=== PATIENT | female | born 1945 ===

== ENCOUNTER 2020-12-26 11:17 | Emergency (ER) | payer MEDICARE ==
[2020-12-26 11:46] LABS: BASOPHILS % (AUTO) 0.5 %; EOSINOPHILS # (AUTO) 0.2 10^3/uL (0.0-0.7); EOSINOPHILS % (AUTO) 2.6 %; HCT - HEMATOCRIT 42.7 % (37.0-47.0); HGB - HEMOGLOBIN 13.5 g/dL (12.0-16.0); LYMPHOCYTES # (AUTO) 1.9 10^3/uL (1.5-3.5); LYMPHOCYTES % (AUTO) 31.8 %; MEAN CORPUSCULAR HGB CONC 31.6 g/dL (32.0-36.0); MEAN CORPUSCULAR VOLUME 91.6 fL (81.0-99.0); MEAN PLATELET VOLUME 9.3 fL (7.9-10.8); MONOCYTES # (AUTO) 0.4 10^3/uL (0.0-1.0); MONOCYTES % (AUTO) 7.2 %; NEUTROPHILS # (AUTO) 3.5 10^3/uL (1.5-6.6); NEUTROPHILS % (AUTO) 57.6 %; PLT - PLATELET COUNT 287 10^3/uL (130-450); RED BLOOD COUNT 4.66 10^6/uL (4.20-5.40); RED CELL DISTRIBUTION WIDTH 13.1 % (12.0-15.0); WHITE BLOOD COUNT 6.1 x10^3/uL (4.8-10.8)
[2020-12-26 12:34] LABS: ALBUMIN 4.4 g/dL (3.2-5.5); ALBUMIN/GLOBULIN RATIO 1.4 (1.0-2.2); BILIRUBIN,TOTAL 1.1 mg/dL (0.2-1.0); CALCIUM 9.3 mg/dL (8.5-10.3); CREATININE 0.7 mg/dL (0.4-1.0); POTASSIUM 3.8 mmol/L (3.5-5.0); TOTAL PROTEIN 7.5 g/dL (6.7-8.2)
--- NOTE | 2020-12-26 13:36 | ED Physician Documentation ---
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 Also has a history of right sided lumpectomy for breast cancer presents with chest, abdominal, and back pain. It started Dino night, 3 nights ago. It was particularly bad under the left breast and radiating between the shoulder blades. She was not short of breath per se, but felt like she had to breathe hard because of the pain. It is persistent but milder now. Review of Systems Ten Systems: 10 systems reviewed and negative Constitutional: reports: Reviewed and negative Eyes: reports: Reviewed and negative Ears: reports: Reviewed and negative Nose: reports: Reviewed and negative Throat: reports: Reviewed and negative Cardiac: reports: Reviewed and negative PD PAST MEDICAL HISTORY - Present Medications Home Medications: Ambulatory Orders Medication Instructions Recorded Confirmed Amox/Clav 875/125 [Augmentin] 1 each PO Q12H #20 tablet 12/26/20 - Allergies Allergies/Adverse Reactions: Allergies Allergy/AdvReac Type Severity Reaction Status Date / Time iv contrast Allergy Severe Anxiety Uncoded 12/26/20 11:25 PD ED PE NORMAL - Vitals Vital signs reviewed: Yes - General General: Alert and oriented X 3, No acute distress - HEENT HEENT: PERRL, EOMI - Neck Neck: Supple, no meningeal sign, No bony TTP - Cardiac Cardiac: RRR, No murmur - Respiratory Respiratory: No respiratory distress, Other (No shingles rash, she does have some left chest wall tenderness and mild left upper quadrant tenderness without surgical signs) - Abdomen Abdomen: Other (No shingles rash, she does have some left chest wall tenderness and mild left upper quadrant tenderness without surgical signs) - Derm Derm: No rash - Extremities Extremities: No edema, No calf tenderness / cord - Neuro Neuro: Alert and oriented X 3, Normal speech Results - Vitals Vitals: Vital Signs - 24 hr 12/26/20 12/26/20 12/26/20 11:19 13:35 15:00 Temperature 36.2 C L 36.5 C 36.5 C Heart Rate 83 80 66 Respiratory 18 18 16 Rate Blood Pressure 145/65 H 145/65 H 133/65 H O2 Saturation 97 97 98 Oxygen O2 Source Room air - EKG (time done) 1344 Rate: Rate (enter#) (68) Rhythm: NSR [place]: LAD Intervals: Normal NM QRS: Normal Ischemia: Normal ST segments - Labs Labs: Laboratory Tests 12/26/20 12/26/20 12/26/20 11:41 11:41 11:41 WBC 6.1 RBC 4.66 Hgb 13.5 Hct 42.7 MCV 91.6 MCH 29.0 MCHC 31.6 L RDW 13.1 Plt Count 287 MPV 9.3 Neut # (Auto) 3.5 Lymph # (Auto) 1.9 [place] # (Auto) 0.4 Eos # (Auto) 0.2 Baso # (Auto) 0.0 Absolute Nucleated RBC 0.00 Nucleated RBC % 0.0 Sodium 139 Potassium 3.8 Chloride 103 Carbon Dioxide 28 Anion Gap 8.0 BUN 16 Creatinine 0.7 Estimated GFR (MDRD) 81 L Glucose 190 H Calcium 9.3 Total Bilirubin 1.1 H AST 21 ALT 20 Alkaline Phosphatase 58 Troponin I High Sens < 2.3 L Total Protein 7.5 Albumin 4.4 Globulin 3.1 Albumin/Globulin Ratio 1.4 Lipase 15 L Urine Color Urine Clarity Urine pH Ur Specific [place] Urine Protein Urine Glucose (UA) Urine Ketones Urine Occult Blood Urine Nitrite Urine Bilirubin Urine Urobilinogen Ur Leukocyte Esterase Urine RBC Urine WBC Ur Squamous Epith Cells Urine Crystals Urine Bacteria Ur Microscopic Review Urine Culture Comments 12/26/20 16:10 WBC RBC Hgb Hct MCV MCH MCHC RDW Plt Count MPV Neut # (Auto) Lymph # (Auto) [place] # (Auto) Eos # (Auto) Baso # (Auto) Absolute Nucleated RBC Nucleated RBC % Sodium Potassium Chloride Carbon Dioxide Anion Gap BUN Creatinine Estimated GFR (MDRD) Glucose Calcium Total Bilirubin AST ALT Alkaline Phosphatase Troponin I High Sens Total Protein Albumin Globulin Albumin/Globulin Ratio Lipase Urine Color YELLOW Urine Clarity CLEAR Urine pH 6.0 Ur Specific [place] 1.010 Urine Protein NEGATIVE Urine Glucose (UA) NEGATIVE Urine Ketones NEGATIVE Urine Occult Blood NEGATIVE Urine Nitrite NEGATIVE Urine Bilirubin NEGATIVE Urine Urobilinogen 0.2 (NORMAL) Ur Leukocyte Esterase SMALL H Urine RBC 0-5 Urine WBC 6-10 H Ur Squamous Epith Cells RARE Squamous Urine Crystals 0-2 Calcium Oxalate Urine Bacteria Rare Ur Microscopic Review INDICATED Urine Culture Comments INDICATED PD MEDICAL DECISION MAKING - ED course ED course: This is a parul 75-year-old woman with history of Whipple presents with left- sided abdominal flank and chest pain. Differential diagnosis is broad and includes ACS, pulmonary embolism, and other intra-abdominal issues. As such a broad work-up was entertained with no evidence of ACS. She does have CTs of the chest abdomen pelvis with IV contrast interpreted contemporaneously by me showing no evidence of PE but she does have evidence of colitis with mild hydronephrosis bilaterally with bladder distention. She is treated with antibiotics and close follow-up was advised. Departure - Departure Disposition: Home, Self Care Clinical Impression: Pyelonephritis, Colitis Condition: Good Record reviewed to determine appropriate education?: Yes Instructions: Pyelonephritis Dc Prescriptions: Amox/Clav 875/125 [Augmentin] 1 each PO Q12H #20 tablet Comments: As discussed, it looks like today the pains you are having are probably from a combination of inflammation of your kidney and colon. This should be well treated with antibiotics. Return for new or worsening symptoms. Follow-up with your primary care physician. Consider colonoscopy and retroperitoneal ultrasound in follow-up.
[2020-12-26] MEDS ORDERED: IOVERSOL 320 100 ML VIAL IVP ONE ×2 (13:46→16:09)
[2020-12-26] MEDS ORDERED: IOVERSOL 320 50 ML VIAL ONE (13:51)
[2020-12-26 15:22] VITALS: BP 133/65
[2020-12-26] MEDS ORDERED: IOVERSOL 320 50 ML VIAL PO ONE (16:10)
[2020-12-26 16:25] LABS: BILIRUBIN,URINE NEGATIVE (NEGATIVE); GLUCOSE, URINE (UA) NEGATIVE (NEGATIVE); KETONES,URINE (UA) NEGATIVE (NEGATIVE); LEUKOCYTE ESTERASE, URINE SMALL (NEGATIVE); NITRITE,URINE NEGATIVE (NEGATIVE); OCCULT BLOOD,URINE NEGATIVE (NEGATIVE); PROTEIN,URINE NEGATIVE (NEGATIVE); UROBILINOGEN,URINE 0.2 (NORMAL) E.U./dL (NORMAL)
[2020-12-26 16:27] LABS: CLARITY,URINE CLEAR (CLEAR)
--- NOTE | 2020-12-26 16:30 | CT Report ---
PROCEDURE: ANGIO CHEST W/WO INDICATIONS: Chest pain to back, pe protocol CONTRAST: IV CONTRAST: Optiray 320 ml: 100 PO CONTRAST: Optiray 320 ml50 TECHNIQUE: After the administration of intravenous contrast, 2 mm axial images were acquired from the pulmonary apices to the posterior costophrenic angles during the arterial phase. In addition, 1 mm lung kernel and 5 mm soft tissue kernel reconstructions were performed. 3-dimensional coronal oblique maximum int ensity projection (MIP) reformats, 8 mm axial MIP, and 5 mm coronal and sagittal MPR reformats were t hen performed through the thorax. For radiation dose reduction, the following was used: automated exp osure control, adjustment of mA and/or kV according to patient size. COMPARISON: Concurrent CT abdomen pelvis. FINDINGS: Image quality: There is streak artifact from patient's injected intravenous contrast. Pulmonary arteries: Pulmonary arteries are normal in size, and demonstrate no intraluminal filling d efects to suggest central pulmonary embolism. Lungs and pleura: There is mild scarring and atelectasis in the lung bases. No pleural effusions or p neumothorax. Central and peripheral airways are patent. Mediastinum: Heart size is borderline enlarged with mild left atrial enlargement. No pericardial eff usion. There is moderate coronary arterial vascular calcification. No mediastinal or hilar adenopath y. Thoracic aorta is normal in caliber and enhancement. Esophagus is normal in caliber, without hia ct hernia. Bones and chest wall: No suspicious bony lesions. Ribs and thoracic spine appear intact throughout. No axillary or supraclavicular adenopathy. The thyroid is not well visualized due to streak artifa ct from injected contrast. Abdomen: Visualized upper abdominal solid organs appear normal in the early arterial phase of enhanc ement. IMPRESSION: 1. No evidence of central pulmonary embolism. 2. Mild scarring and atelectasis in the lung bases without acute consolidation. Reviewed by: Linden Farah MD on 12/26/2020 4:29 PM PDT Approved by: Linden Farah MD on 12/26/2020 4:29 PM PDT Station ID: [id number]
[2020-12-26 16:36] LABS: BACTERIA,URINE Rare /HPF (None Seen); CRYSTALS,URINE 0-2 Calcium Oxalate /LPF; RBC,URINE 0-5 /HPF (0-5); SQUAMOUS EPITHELIAL CELL,UR RARE Squamous (<= Few)
--- NOTE | 2020-12-26 16:40 | CT Report ---
PROCEDURE: Abdomen/Pelvis W INDICATIONS: IV and PO, upper abd, L chest pain, hx whipple CONTRAST: IV CONTRAST: Optiray 320 ml: 100 PO CONTRAST: Optiray 320 ml50 TECHNIQUE: After the administration of intravenous and oral contrast, 5 mm thick sections acquired from the diap hragms to the symphysis. 5 mm thick coronal and sagittal reformats were acquired. For radiation dos e reduction, the following was used: automated exposure control, adjustment of mA and/or kV accordin g to patient size. COMPARISON: Concurrent CT angiogram of the chest. FINDINGS: Image quality: Excellent. ABDOMEN: Lung bases: There is mild linear atelectasis and scarring in the lung bases. Heart size is normal. Solid organs: Evaluation of the liver demonstrates no focal hepatic lesions. Gallbladder is surgical ly absent. Biliary system is non dilated. The spleen is normal in size. No adrenal nodules. There i s mild dilatation of the renal collecting systems and proximal ureters bilaterally. No discrete obstr ucting stones or mass visualized. The mid and distal ureters are nondistended. Postsurgical changes are demonstrated consistent with prior Whipple procedure. There is severe fatty atrophy of the remnant pancreatic body and tail. No discrete suspicious mass identified in the surgic al bed. Peritoneum and bowel: Small bowel loops demonstrate normal wall thickness and caliber. No pericecal i nflammatory changes to suggest appendicitis. There is mild segmental bowel wall thickening in the rec tosigmoid colon which reflect a mild colitis. No free fluid or air. Nodes and vessels: No retroperitoneal or mesenteric adenopathy by size criteria. Aorta and inferior vena cava are normal in size. Miscellaneous: No ventral hernias. PELVIS: Genitourinary: Bladder wall thickness is normal. There is moderate bladder distention. Miscellaneous: No inguinal hernias or adenopathy. Bones: No suspicious bony lesions. No vertebral body compression fractures. IMPRESSION: 1. Mild fullness of the renal collection systems and proximal ureters bilaterally without a discrete injecting stone or mass visualized. The findings may reflect sequelae of bladder distention. 2. Moderate distention of the urinary bladder without wall thickening or discrete obstructing mass vi sualized. 3. Postsurgical changes consistent with prior Whipple procedure without a discrete suspicious mass in the surgical bed. 4. Mild segmental wall thickening in the rectal sigmoid colon may reflect a mild colitis. Recommend c orrelation clinically. Reviewed by: Linden Farah MD on 12/26/2020 4:38 PM PDT Approved by: Linden Farah MD on 12/26/2020 4:38 PM PDT Station ID: [id number]
[2020-12-26] MEDS ORDERED: AMOX/CLAV 875 MG/125 MG TABLET PO STA (16:45)
== END 2020-12-26 16:52 | disposition home or self-care (01) ==
LOC: ED 11:17
DX: N12 Tubulo-interstitial nephritis, not specified as acute or chronic (principal); K52.9 Noninfective gastroenteritis and colitis, unspecified
CPT/HCPCS: 36415; 71275; 74177; 80053; 81001; 83690; 84484; 85025; 87086; 93005; 99284; A9270; Q9967; 81003

== ENCOUNTER 2022-07-06 09:17 | Outpatient (CLI) | payer MEDICARE ==
--- NOTE | 2022-07-09 09:40 | Mammography Report ---
BILATERAL DIGITAL SCREENING MAMMOGRAM 3D/2D: 07/06/2022 CLINICAL: Routine screening. Personal history of right breast cancer. Comparison is made to exams dated: 03/22/2016 mammogram, 03/21/2015 mammogram, 03/04/2014 mammogram, 08/16 mammogram, 02/11/2013 mammogram, and 08/12/2012 breast MRI - [facility]. Both breasts are almost entirely fatty (category a/<25% glandular tissue). There are benign calcifications in both breasts. There also are benign post operative findings in th e right breast. No significant masses, calcifications, or other findings are seen in either breast. There has been no significant interval change. IMPRESSION: BENIGN There is no mammographic evidence of malignancy. A 1 year screening mammogram is recommended. This exam was interpreted at Station ID: [id number]. NOTE: For mammograms, a report in lay terms will be sent to the patient. Approximately 15% of breast malignancies will not be visualized mammographically. In the management of a palpable breast mass, a negative mammogram must not discourage biopsy of a clinically suspicious lesion. Electronically Signed By: John Santos M.D. acr/joie:07/06/2022 16:05:16 letter sent: No_Letter ACR BI-RADS Category 2: Benign Finding(s) 3342F PARENCHYMAL PATTERN: (F) - The breast(s) demonstrate(s) diffuse fatty replacement. BI-RADS CATEGORY: (2) - 2 Mammogram [id number] 1 year screening LATERALITY: (B)
== END 2022-07-06 09:18 | disposition home or self-care (01) ==
LOC: DI 09:17
DX: Z12.31 Encounter for screening mammogram for malignant neoplasm of breast (principal); Z85.3 Personal history of malignant neoplasm of breast

== ENCOUNTER 2023-07-29 08:00 | Outpatient (CLI) | payer MEDICARE ==
[2023-07-29 15:01] LABS: BILIRUBIN,URINE NEGATIVE (NEGATIVE); GLUCOSE, URINE (UA) NEGATIVE (NEGATIVE); KETONES,URINE (UA) NEGATIVE (NEGATIVE); LEUKOCYTE ESTERASE, URINE TRACE (NEGATIVE); NITRITE,URINE NEGATIVE (NEGATIVE); OCCULT BLOOD,URINE NEGATIVE (NEGATIVE); PROTEIN,URINE NEGATIVE (NEGATIVE); UROBILINOGEN,URINE 0.2 (NORMAL) E.U./dL (NORMAL)
[2023-07-29 15:15] LABS: CLARITY,URINE CLOUDY (CLEAR)
[2023-07-29 15:45] LABS: BACTERIA,URINE Moderate /HPF (None Seen); RBC,URINE 0-5 /HPF (0-5); SQUAMOUS EPITHELIAL CELL,UR NONE SEEN (<= Few)
== END 2023-07-29 08:01 | disposition home or self-care (01) ==
LOC: LAB.S 08:00
PROVIDERS: ATTEND Physician Assistant Medical
DX: R31.9 Hematuria, unspecified (principal); R30.0 Dysuria
CPT/HCPCS: 81001; 87086